=== PATIENT | female | born 2000 | race Two or more races ===

== ENCOUNTER 2020-10-22 21:49 | Emergency (ER) | payer OTHER ==
[2020-10-22 21:56] VITALS: BMI 31.8
[2020-10-22 22:55] LABS: EPI CELLS 16 /uL (0-25.1); HYALINE CASTS 1 /uL (0-3.1); PH,URINE 6.5 (5.0-8.0); URINE APPEARANCE CLEAR; URINE BACTERIA 210 /uL (0-1359); URINE BILIRUBIN NEGATIVE (NEGATIVE); URINE COLOR YELLOW; URINE GLUCOSE (UA) NEGATIVE (NEGATIVE); URINE KETONE NEGATIVE (NEGATIVE); URINE LEUK ESTERASE NEGATIVE (NEGATIVE); URINE NITRITE NEGATIVE (NEGATIVE); URINE PROTEIN NEGATIVE (NEGATIVE); URINE RBC 26 /uL (0-23.9); URINE UROBILINOGEN 0.2 mg/dL (0.2-1.0); URINE WBC 8 /uL (0-25.8)
[2020-10-22 22:56] LABS: HCG,QUALITATIVE URINE Negative
[2020-10-22] MEDS ORDERED: ACETAMINOPHEN 500 MG TABLET (FP) PO ONE (23:04)
[2020-10-22] MEDS ORDERED: IBUPROFEN 600 MG TABLET (FP) PO ONE ×2 (23:04→23:21)
[2020-10-22 23:12] LABS: BASO % 0.6 % (0-2.0); EOS % 0.7 % (0-4.5); HEMATOCRIT 38.4 % (32.4-45.2); HEMOGLOBIN 12.7 GM/dL (10.7-15.3); LYMPH % 36.1 % (8-40); MCHC 33.1 g/dl (32.0-36.0); MEAN CELL VOLUME 90.7 fl (80-96); MEAN PLT VOLUME 9.7 fl (7.5-11.1); MONO % 7.4 % (3.8-10.2); NEUT % 55.2 % (42.8-82.8); PLATELET COUNT 209 K/MM3 (134-434); RBC 4.24 M/mm3 (3.60-5.2); RDW 13.8 % (11.6-15.6); WHITE BLOOD COUNT 7.1 K/mm3 (4.0-10.0)
[2020-10-22] MEDS ORDERED: ONDANSETRON *ODT* 4 MG TABLET SL ONE (23:18)
[2020-10-22] MEDS ORDERED: ACETAMINOPHEN 325 MG TABLET (FP) ONE (23:20)
[2020-10-22 23:25] VITALS: TEMP 98.5
[2020-10-23] MEDS ORDERED: ONDANSETRON *ODT* 4 MG TABLET ONE (00:17)
[2020-10-23 00:38] VITALS: BP 108/70; PULSE 66
== END 2020-10-23 00:38 | disposition home or self-care (01) ==
LOC: JER 21:49
DX: N93.9 Abnormal uterine and vaginal bleeding, unspecified (principal); R10.2 Pelvic and perineal pain
CPT/HCPCS: 36415; 76830-TC; 81003; 84703; 85025; 87086; 99284-25; Q0162